=== PATIENT | female | born 1965 | race Caucasian/White ===

== ENCOUNTER → 2017-01-15 | Outpatient (CLI) | payer OTHER | LOC: FIMAGING 14:48 | PROVIDERS: ATTEND Family Medicine | DX: Z12.31 Encounter for screening mammogram for malignant neoplasm of breast (principal); Z80.3 Family history of malignant neoplasm of breast | CPT/HCPCS: G0202 ==

== ENCOUNTER → 2017-07-15 | Outpatient (CLI) | payer OTHER | LOC: BMCIMAGING 08:15 | PROVIDERS: ATTEND Orthopaedic Surgery Hand Surgery | DX: M79.641 Pain in right hand (principal); M79.642 Pain in left hand ==

== ENCOUNTER → 2018-01-19 | Outpatient (CLI) | payer OTHER | LOC: FIMAGING 10:10 | PROVIDERS: ATTEND Family Medicine | DX: Z12.31 Encounter for screening mammogram for malignant neoplasm of breast (principal) ==

== ENCOUNTER → 2018-12-13 | Outpatient (CLI) | payer OTHER | LOC: FIMAGING 09:31 | PROVIDERS: ATTEND Family Medicine | DX: N28.1 Cyst of kidney, acquired (principal); R10.9 Unspecified abdominal pain ==

== ENCOUNTER → 2018-12-21 | Outpatient (CLI) | payer OTHER ==
[~2018-12-21] MED LIST: IOPAMIDOL (ISOVUE 370) 100 ML BTL IV ONE
== END ==
LOC: FIMAGING 09:07
PROVIDERS: ATTEND Physician Assistant
DX: N28.89 Other specified disorders of kidney and ureter (principal)
CPT/HCPCS: Q9967

== ENCOUNTER → 2019-01-04 | Outpatient (CLI) | payer OTHER | LOC: FIMAGING 16:06 | PROVIDERS: ATTEND Radiology Diagnostic Radiology | DX: Z71.89 Other specified counseling (principal) ==

== ENCOUNTER 2019-02-10 10:20 | Observation (INO) | payer OTHER | END 2019-02-11 11:24 | disposition home or self-care (01) | LOC: FLAB 10:20 → F3E 17:37 ==

== ENCOUNTER → 2019-02-22 | Outpatient (CLI) | payer OTHER | LOC: FIMAGING 14:40 ==